=== PATIENT | male | born 1950 | race Caucasian/White ===

== ENCOUNTER 2021-02-24 06:32 | Outpatient (CLI) | payer OTHER ==
[~2021-02-24 06:32] MED LIST: AMLO10TA PO; BENA20TA PO; GEMF600T5 PO; HYDR12.5 PO; METO25TE2 PO
[2021-02-24 08:15] LABS: BASOPHILS # (AUTO) 0.1 K/uL (0.00-0.22); BASOPHILS % (AUTO) 0.8 % (0.0-2.0); EOSINOPHILS # (AUTO) 0.1 K/uL (0-0.4); EOSINOPHILS % (AUTO) 1.8 % (0.0-4.0); HEMATOCRIT 45.1 % (36-52); HEMOGLOBIN 15.6 g/dL (12.0-18.0); LYMPHOCYTES # (AUTO) 1.4 K/uL (2.0-11.5); LYMPHOCYTES % (AUTO) 22.9 % (20.5-51.1); MEAN CORPUSCULAR HEMOGLOBIN 33 pg (27-31); MEAN CORPUSCULAR HGB CONC 35 g/dL (33-37); MEAN CORPUSCULAR VOLUME 94.4 fL (80-94); MONOCYTES # (AUTO) 1.1 K/uL (0.8-1.0); MONOCYTES % (AUTO) 17.8 % (1.7-9.3); NEUTROPHILS # (AUTO) 3.4 K/uL (1.8-7.7); NEUTROPHILS % (AUTO) 56.7 % (42.2-75.2); PLATELET COUNT (AUTO) 226 K/uL (140-450); RED BLOOD CELL COUNT(AUTO) 4.77 MIL/uL (4.20-6.10); RED CELL DISTRIBUTION WIDTH 13.8 % (11.6-13.7)
[2021-02-24 08:23] LABS: ALBUMIN 3.4 g/dL (3.4-5.0); CARBON DIOXIDE 30.6 mmol/L (21-32); CHOL/HDL RATIO 1.9 (1-4.5); CREATININE 1.1 mg/dL (0.6-1.3); TOTAL BILIRUBIN 0.3 mg/dL (0.0-1.0)
[2021-02-24 09:35] LABS: POTASSIUM 4.4 mmol/L (3.5-5.1)
[2021-02-24 09:36] LABS: ANION GAP 9.8 (8-16)
== END 2021-02-24 21:00 | disposition home or self-care (01) ==
LOC: MLB 06:32
PROVIDERS: ATTEND Family Medicine
DX: Z12.2 Encounter for screening for malignant neoplasm of respiratory organs (principal); I10 Essential (primary) hypertension; I25.10 Atherosclerotic heart disease of native coronary artery without angina pectoris; K44.9 Diaphragmatic hernia without obstruction or gangrene; M47.814 Spondylosis without myelopathy or radiculopathy, thoracic region; R91.8 Other nonspecific abnormal finding of lung field
CPT/HCPCS: 36415; 71250; 80053; 82306; 85025

== ENCOUNTER 2021-04-07 10:47 | Outpatient (CLI) | payer OTHER ==
[2021-04-07 11:26] LABS: BASOPHILS # (AUTO) 0.1 K/uL (0.00-0.22); BASOPHILS % (AUTO) 1.9 % (0.0-2.0); EOSINOPHILS # (AUTO) 0.1 K/uL (0-0.4); EOSINOPHILS % (AUTO) 1.5 % (0.0-4.0); HEMATOCRIT 42.6 % (36-52); HEMOGLOBIN 14.4 g/dL (12.0-18.0); LYMPHOCYTES # (AUTO) 1.4 K/uL (2.0-11.5); MEAN CORPUSCULAR HEMOGLOBIN 32 pg (27-31); MEAN CORPUSCULAR HGB CONC 34 g/dL (33-37); MEAN CORPUSCULAR VOLUME 95.5 fL (80-94); MONOCYTES # (AUTO) 0.9 K/uL (0.8-1.0); MONOCYTES % (AUTO) 12.2 % (1.7-9.3); NEUTROPHILS # (AUTO) 4.6 K/uL (1.8-7.7); NEUTROPHILS % (AUTO) 64.4 % (42.2-75.2); PLATELET COUNT (AUTO) 274 K/uL (140-450); RED BLOOD CELL COUNT(AUTO) 4.46 MIL/uL (4.20-6.10); RED CELL DISTRIBUTION WIDTH 13.5 % (11.6-13.7); WHITE BLOOD COUNT (AUTO) 7.2 K/uL (4.8-10.8)
[2021-04-07 11:33] LABS: PROTHROMBIN TIME 9.5 secs (10.8-13.4)
[2021-04-07 11:46] LABS: ALBUMIN 3.4 g/dL (3.4-5.0); ANION GAP 10.5 (8-16); CREATININE 1.1 mg/dL (0.6-1.3); POTASSIUM 4.5 mmol/L (3.5-5.1); THYROID STIMULATING HORMONE 0.96 uIU/mL (0.34-3.74); TOTAL BILIRUBIN 0.8 mg/dL (0.0-1.0)
== END 2021-04-08 22:37 | disposition home or self-care (01) ==
LOC: MLB 10:47
PROVIDERS: ATTEND Family Medicine
DX: I10 Essential (primary) hypertension (principal); I25.10 Atherosclerotic heart disease of native coronary artery without angina pectoris
CPT/HCPCS: 36415; 80053; 82306; 84154; 84443; 85025; 85610

== ENCOUNTER → 2021-04-08 | Outpatient (CLI) | payer OTHER | END | disposition home or self-care (01) | LOC: MUS 06:23 | PROVIDERS: ATTEND Family Medicine | DX: N28.1 Cyst of kidney, acquired (principal); R79.89 Other specified abnormal findings of blood chemistry | CPT/HCPCS: 76705; Q0092 ==

== ENCOUNTER 2021-10-06 06:20 | Outpatient (CLI) | payer OTHER ==
[2021-10-06 07:19] LABS: BASOPHILS # (AUTO) 0.1 K/uL (0.00-0.22); EOSINOPHILS # (AUTO) 0.2 K/uL (0-0.4); MEAN CORPUSCULAR HEMOGLOBIN 32 pg (27-31); MONOCYTES # (AUTO) 1.1 K/uL (0.8-1.0); MONOCYTES % (AUTO) 13.6 % (1.7-9.3)
[2021-10-06 07:20] LABS: HEMOGLOBIN 14.1 g/dL (12.0-18.0); RED BLOOD CELL COUNT(AUTO) 4.42 MIL/uL (4.20-6.10); WHITE BLOOD COUNT (AUTO) 7.8 K/uL (4.8-10.8)
[2021-10-06 07:21] LABS: HEMATOCRIT 42.1 % (36-52); MEAN CORPUSCULAR HGB CONC 33 g/dL (33-37); MEAN CORPUSCULAR VOLUME 95.3 fL (80-94); PLATELET COUNT (AUTO) 291 K/uL (140-450); RED CELL DISTRIBUTION WIDTH 13.4 % (11.6-13.7)
[2021-10-06 07:22] LABS: EOSINOPHILS % (AUTO) 2.1 % (0.0-4.0); LYMPHOCYTES # (AUTO) 1.9 K/uL (2.0-11.5); LYMPHOCYTES % (AUTO) 24.5 % (20.5-51.1); NEUTROPHILS # (AUTO) 4.6 K/uL (1.8-7.7); NEUTROPHILS % (AUTO) 58.8 % (42.2-75.2)
[2021-10-06 07:33] LABS: ANION GAP 10.9 (8-16); CARBON DIOXIDE 28.4 mmol/L (21-32); CHOL/HDL RATIO 2.2 (1-4.5); POTASSIUM 4.3 mmol/L (3.5-5.1); THYROID STIMULATING HORMONE 1.27 uIU/mL (0.34-3.74); TOTAL BILIRUBIN 0.3 mg/dL (0.0-1.0)
== END 2021-10-06 22:05 | disposition home or self-care (01) ==
LOC: MLB 06:20
PROVIDERS: ATTEND Family Medicine
DX: I10 Essential (primary) hypertension (principal); E78.5 Hyperlipidemia, unspecified
CPT/HCPCS: 36415; 80053; 82306; 84154; 84443; 85025

== ENCOUNTER 2022-02-16 07:20 | Outpatient (CLI) | payer OTHER ==
[2022-02-16 09:06] LABS: BASOPHILS # (AUTO) 0.1 K/uL (0.00-0.22); BASOPHILS % (AUTO) 0.8 % (0.0-2.0); EOSINOPHILS # (AUTO) 0.1 K/uL (0-0.4); EOSINOPHILS % (AUTO) 1.7 % (0.0-4.0); HEMATOCRIT 42.3 % (36-52); HEMOGLOBIN 14.1 g/dL (12.0-18.0); LYMPHOCYTES # (AUTO) 1.9 K/uL (2.0-11.5); LYMPHOCYTES % (AUTO) 24.4 % (20.5-51.1); MEAN CORPUSCULAR HEMOGLOBIN 32 pg (27-31); MEAN CORPUSCULAR HGB CONC 33 g/dL (33-37); MEAN CORPUSCULAR VOLUME 94.9 fL (80-94); MONOCYTES % (AUTO) 13.2 % (1.7-9.3); NEUTROPHILS # (AUTO) 4.6 K/uL (1.8-7.7); NEUTROPHILS % (AUTO) 59.9 % (42.2-75.2); PLATELET COUNT (AUTO) 265 K/uL (140-450); RED BLOOD CELL COUNT(AUTO) 4.46 MIL/uL (4.20-6.10); RED CELL DISTRIBUTION WIDTH 13.7 % (11.6-13.7); WHITE BLOOD COUNT (AUTO) 7.7 K/uL (4.8-10.8)
[2022-02-16 09:24] LABS: ALBUMIN 3.3 g/dL (3.4-5.0); ANION GAP 12.4 (8-16); CARBON DIOXIDE 28.2 mmol/L (21-32); CHOL/HDL RATIO 1.8 (1-4.5); POTASSIUM 4.6 mmol/L (3.5-5.1); TOTAL BILIRUBIN 0.7 mg/dL (0.0-1.0)
== END 2022-02-16 20:32 | disposition home or self-care (01) ==
LOC: MLB 07:20
PROVIDERS: ATTEND Family Medicine
DX: Z12.2 Encounter for screening for malignant neoplasm of respiratory organs (principal); Z12.11 Encounter for screening for malignant neoplasm of colon; R91.1 Solitary pulmonary nodule; J43.9 Emphysema, unspecified; D71 Functional disorders of polymorphonuclear neutrophils; I73.9 Peripheral vascular disease, unspecified; I89.8 Other specified noninfective disorders of lymphatic vessels and lymph nodes; I70.0 Atherosclerosis of aorta; D73.89 Other diseases of spleen; I10 Essential (primary) hypertension; I25.10 Atherosclerotic heart disease of native coronary artery without angina pectoris
CPT/HCPCS: 36415; 71250; 80053; 82306; 85025

== ENCOUNTER 2022-03-14 08:04 | Outpatient (CLI) | payer OTHER ==
[2022-03-14 09:03] LABS: ALBUMIN 3.1 g/dL (3.4-5.0); ANION GAP 9.4 (8-16); CHOL/HDL RATIO 1.8 (1-4.5); CREATININE 1.1 mg/dL (0.6-1.3); POTASSIUM 4.4 mmol/L (3.5-5.1); TOTAL BILIRUBIN 0.6 mg/dL (0.0-1.0)
== END 2022-03-14 20:29 | disposition home or self-care (01) ==
LOC: MLB 08:04
PROVIDERS: ATTEND Family Medicine
DX: I10 Essential (primary) hypertension (principal); I25.10 Atherosclerotic heart disease of native coronary artery without angina pectoris
CPT/HCPCS: 36415; 80053; 83825